=== PATIENT | female | born 1990 | race Caucasian/White ===

== ENCOUNTER 2022-10-10 09:26 | Outpatient (CLI) | payer OTHER, SELFPAY | END 2022-10-10 09:27 | disposition home or self-care (01) | PROVIDERS: PCP Family Medicine; Visit Provider Family Medicine | DX: Z00.00 Encounter for general adult medical examination without abnormal findings (principal); Z13.6 Encounter for screening for cardiovascular disorders; Z13.1 Encounter for screening for diabetes mellitus | CPT/HCPCS: 80061; 82947 ==

== ENCOUNTER 2024-12-18 10:00 | Outpatient (RCR) | payer OTHER, SELFPAY | END 2024-12-18 17:30 | disposition home or self-care (01) | PROVIDERS: PCP Family Medicine; Visit Provider Family Medicine | DX: M54.2 Cervicalgia (principal); M51.9 Unspecified thoracic, thoracolumbar and lumbosacral intervertebral disc disorder; M62.838 Other muscle spasm; Z51.89 Encounter for other specified aftercare | CPT/HCPCS: 97110; 97140; 97161 ==